=== PATIENT | female | born 1980 | race Caucasian/White ===

== ENCOUNTER → 2016-11-23 | Outpatient (CLI) | payer BC ==
--- NOTE | 2016-11-23 13:57 | XR ---
EXAMINATION TYPE: XR chest 2V DATE OF EXAM: 11/23/2016 COMPARISON: NONE HISTORY: Cough for 5 days. Bronchitis per order. TECHNIQUE: Frontal and lateral views of the chest are obtained. FINDINGS: There is no focal air space opacity, pleural effusion, or pneumothorax seen. The cardiac silhouette size is within normal limits. The osseous structures are intact. IMPRESSION: No suspicious acute infiltrate.
== END | disposition home or self-care (01) ==
LOC: RADXRYALE 13:06
PROVIDERS: ATTEND Internal Medicine
DX: J40 Bronchitis, not specified as acute or chronic (principal)
CPT/HCPCS: 71020

== ENCOUNTER 2018-09-14 00:20 | Emergency (ER) | payer BC ==
[2018-09-14 00:38] VITALS: BP 136/93; PULSE 95; RESP 18; TEMP 98.1
[2018-09-14 02:02] LABS: Appearance,Urine Clear (Clear); Bilirubin,Urine Negative (Negative); Blood,Urine Small (Negative); Color,Urine Yellow; Glucose,Urine (UA) Negative (Negative); Ketones,Urine 2+ (Negative); Leukocyte Esterase,Urine Small (Negative); Mucus,Urine Rare /hpf; Nitrite,Urine Negative (Negative); PH, Urine 5.5 (5.0-8.0); Protein,Urine Negative (Negative); RBC,Urine 13 /hpf (0-5); Squamous Epithelial Cell,Urine 2 /hpf (0-4); Urobilinogen,Urine <2.0 mg/dL (<2.0)
[2018-09-14] MEDS ORDERED: NITROFURANTOIN MONOHYD/M-CRYST 100 MG CAP PO STA (02:08)
[2018-09-14] MEDS ORDERED: PHENAZOPYRIDINE 200 MG TAB PO STA (02:09)
--- NOTE | 2018-09-14 02:37 | ED ---
Abdominal Pain HPI - General Chief Complaint: Abdominal Pain Stated Complaint: Back Pain Pelvic Pain Urge to Urinate Time Seen by Provider: 09/14/18 01:17 Source: patient Mode of arrival: ambulatory Limitations: no limitations - History of Present Illness Initial Comments: First previously healthy 38-year-old female presents the emergency department today for evaluation of pelvic pressure and urinary frequency. Patient reports that throughout the day today she's had pressure in her pelvis and a constant urge to urinate though when she attempts to urinate she produces very little urine. She hasn't noticed any gross hematuria. She has mild dysuria. She has no history of kidney stones. She reports she has no history of urinary tract infection she doesn't follow with urology for anything. She has no concern for or sexual transmitted infections. - Related Data Previous Rx's Medication Instructions Recorded Nitrofurantoin Monohyd/M-Cryst 100 mg PO Q12HR #10 cap 09/14/18 [Macrobid] Phenazopyridine [Pyridium] 200 mg PO TID #9 tablet 09/14/18 Allergies Allergy/AdvReac Type Severity Reaction Status Date / Time No Known Allergies Allergy Verified 09/14/18 00:38 Review of Systems ROS Statement: Those systems with pertinent positive or pertinent negative responses have been documented in the HPI. ROS Other: All systems not noted in ROS Statement are negative. Past Medical History Past Medical History: Hypertension History of Any Multi-Drug Resistant Organisms: None Reported Past Surgical History: Section Past Psychological History: No Psychological Hx Reported Smoking Status: Current every day smoker Past Alcohol Use History: None Reported Past Drug Use History: None Reported General Exam - General Exam Comments Initial Comments: Physical Exam GENERAL: Patient is well-developed and well-nourished. Patient is nontoxic and well- hydrated and is in no distress. HENT: Normocephalic, Atraumatic. EYES: PERRL, EOMI PULMONARY: Unlabored respirations. No audible rales rhonchi or wheezing was noted. CARDIOVASCULAR: There is a regular rate and rhythm without any murmurs gallops or rubs. ABDOMEN: Soft and nontender with normal bowel sounds. Mild discomfort with deep palpation of the suprapubic region. No tenderness to percussion of the flanks SKIN: Skin is clear with no lesions or rashes and otherwise unremarkable. : Deferred NEUROLOGIC: Patient is alert and oriented x3. Moving all extremities spontaneously MUSCULOSKELETAL: Normal extremities with adequate strength and full range of motion. No lower extremity swelling or edema. No calf tenderness. PSYCHIATRIC: Normal psychiatric evaluation. Limitations: no limitations Limitations: no limitations Course Vital Signs 09/14/18 00:34 Temperature 98.1 F Pulse Rate 95 Respiratory 18 Rate Blood Pressure 136/93 O2 Sat by Pulse 100 Oximetry Medical Decision Making - Medical Decision Making The patient was seen and evaluated history was obtained from patient History and physical exam are concerning for urinary tract infection urinalysis was obtained and revealed white blood cells as well as red blood cells and positive leuk esterase there were a couple squamous epithelium urine culture was ordered Patient is not , Macrobid and Pyridium were ordered Treatment plan was discussed with patient. I did advise her of the side effects of Pyridium including urine discoloration and some nausea. Advised her to take all of her antibiotics. Return parameters were discussed questions pertaining care were answered to the best of my ability the patient was discharged home in stable condition. - Lab Data Lab Results 09/14/18 09/14/18 Range/Units 01:50 01:50 Urine Color Yellow Urine Appearance Clear (Clear) Urine pH 5.5 (5.0-8.0) Ur Specific [place] 1.020 (1.001-1.035) Urine Protein Negative (Negative) Urine Glucose (UA) Negative (Negative) Urine Ketones 2+ H (Negative) Urine Blood Small H (Negative) Urine Nitrite Negative (Negative) Urine Bilirubin Negative (Negative) Urine Urobilinogen <2.0 (<2.0) mg/dL Ur Leukocyte Esterase Small H (Negative) Urine RBC 13 H (0-5) /hpf Urine WBC 10 H (0-5) /hpf Ur Squamous Epith Cells 2 (0-4) /hpf Urine Mucus Rare H (None) /hpf Urine HCG, Qual Not Detected (Not Detectd) Disposition Clinical Impression: UTI (urinary tract infection) Disposition: HOME SELF-CARE Condition: Stable Instructions (If sedation given, give patient instructions): Urinary Tract Infection in Women (ED) Prescriptions: Nitrofurantoin Monohyd/M-Cryst [Macrobid] 100 mg PO Q12HR #10 cap Phenazopyridine [Pyridium] 200 mg PO TID #9 tablet Is patient prescribed a controlled substance at d/c from ED?: No Referrals: Sierra Guy MD [Primary Care Provider] - 1-2 days
== END 2018-09-14 02:45 | disposition home or self-care (01) ==
LOC: EC 00:20
DX: N39.0 Urinary tract infection, site not specified (principal); R10.9 Unspecified abdominal pain; F17.200 Nicotine dependence, unspecified, uncomplicated
CPT/HCPCS: 81001; 81025; 99283

== ENCOUNTER → 2018-10-15 | Outpatient (CLI) | payer BC ==
--- NOTE | 2018-10-15 10:46 | US ---
EXAMINATION TYPE: US kidneys/renal and bladder DATE OF EXAM: 10/15/2018 COMPARISON: NONE CLINICAL HISTORY: 38-year-old female M54.5 Rt sided low back pain. Right flank pain. N/V. No hx of r enal stones. TECHNIQUE: Multiple sonographic images of the kidneys and bladder are obtained. FINDINGS: EXAM MEASUREMENTS: Right Kidney: 12.3 x 4.6 x 5.2 cm Left Kidney: 10.1 x 5.1 x 4.5 cm Right Kidney: Mild hydronephrosis visualized. Appears larger in size compared to contralateral kidne y. Left Kidney: No hydronephrosis, lower pole echogenic focus seen with shadow- 0.5 x 0.6 cm Bladder: distended. Echogenic focus seen in right distal ureter with shadow = 0.7 cm Left jet seen IMPRESSION: 1. Mild right-sided hydronephrosis secondary to a 7 mm calculus in the distal right ureter/UVJ region . This obstructs the right ureteral jet. 2. A 6 mm nonobstructive left renal calculus.
== END | disposition home or self-care (01) ==
LOC: RADUSWWP 10:10
PROVIDERS: ATTEND Internal Medicine
DX: N13.2 Hydronephrosis with renal and ureteral calculous obstruction (principal)
CPT/HCPCS: 76770

== ENCOUNTER → 2020-06-09 | Outpatient (CLI) | payer BC | END | disposition home or self-care (01) | LOC: LABWHC1 12:16 | PROVIDERS: ATTEND Internal Medicine | DX: M79.10 Myalgia, unspecified site (principal); R19.7 Diarrhea, unspecified; R11.10 Vomiting, unspecified | CPT/HCPCS: U0003; C9803 ==

== ENCOUNTER → 2021-08-31 | Outpatient (CLI) | payer BC ==
[2021-08-31 17:24] LABS: Basophils # (A) 0.07 X 10*3/uL (0.00-0.10); Basophils % (A) 1.1 %; Eosinophils # (A) 0.12 X 10*3/uL (0.04-0.35); Eosinophils % (A) 1.9 %; HCT 42.5 % (37.2-46.3); HGB 14.1 g/dL (12.0-15.0); Immature Grans, Automated 0.3 %; Lymphocytes % (A) 22.4 %; MCH 30.7 pg (27.0-32.0); MCHC 33.2 g/dL (32.0-37.0); MCV 92.4 fL (80.0-97.0); Mean Platelet Volume 9.7 fL (9.5-12.2); Monocytes # (A) 0.45 X 10*3/uL (0.20-1.00); Monocytes % (A) 7.2 %; NRBC Per 100 WBC 0 /100 WBCS (0.0-0.0); Neutrophils # (A) 4.19 X 10*3/uL (1.80-7.70); Neutrophils % (A) 67.1 %; Platelet Count 416 X 10*3/uL (140-440); RDW 12.5 % (11.5-14.5); WBC 6.25 X 10*3/uL (4.50-10.00)
[2021-08-31 17:32] LABS: Anion Gap 10.7 mmol/L (10.00-18.00)
== END | disposition home or self-care (01) ==
LOC: LABPAT 10:13
PROVIDERS: ATTEND Orthopaedic Surgery Hand Surgery
DX: Z01.812 Encounter for preprocedural laboratory examination (principal); G56.01 Carpal tunnel syndrome, right upper limb
CPT/HCPCS: 80051; 85025

== ENCOUNTER 2021-09-01 06:23 | Day surgery (SDC) | payer BC ==
[2021-08-27 11:01] VITALS: BMI 25.9
--- NOTE | 2021-08-30 10:24 | P.HPOR ---
History of Present Illness H&P Date: 08/30/21 Chief Complaint: Right carpal tunnel syndrome Subjective: This is a 41 year old female that presents today for initial evaluation regarding a 6 month history of worsening numbness and tingling in her right hand localized to the thumb, index and middle fingers. She has tried night splinting with little relief and is having night symptoms. She denies any injury or inciting event. She states she has a history of RA but is not taking any medications. She states her numbness in constant and bothering her everyday and effecting strength. Physical Examination: RUE: AIN/PIN/Radial/Ulnar/Median motor intact. Radial/Ulnar/Median SILT. 2+/4 Radial/Ulnar pulses palpated. 5/5 APB, 5/5 FDI. Negative Finkelsteins, negative CMC grind, positive Durkan's compression. Impression: 1.) Right carpal tunnel syndrome. Plan: Diagnosis and treatment options were discussed with the patient. She has right carpal tunnel syndrome that has failed conservative treatment and I recommend right endoscopic carpal tunnel release. Risks and benefit of surgery including bleeding, infection, damage to surrounding tissue, need for further surgery, possible need to convert to open procedure, residual numbness were discussed and the patient wished to go forward with surgery which will be scheduled in the near future. Please CC notes to Dr. 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, CTS History of Any Multi-Drug Resistant Organisms: None Reported Past Surgical History: Section Additional Past Surgical History / Comment(s): Laparoscopy D/T ovarian cyst rupture Past Anesthesia/Blood Transfusion Reactions: No Reported Reaction Smoking Status: Current every day smoker - Past Family History Mother Family Medical History: No Reported History Medications and Allergies Home Medications Medication Instructions Recorded Confirmed Type Acetaminophen [Tylenol Extra 1,000 mg PO DIRECTED PRN 08/27/21 08/27/21 History Strength] amLODIPine [Norvasc] 10 mg PO DAILY 08/27/21 08/27/21 History lisinopriL [Zestril] 10 tab PO DAILY 08/27/21 08/27/21 History Allergies Allergy/AdvReac Type Severity Reaction Status Date / Time No Known Allergies Allergy Verified 08/27/21 10:41 Physical Examination Osteopathic Statement: *. No significant issues noted on an osteopathic structural exam other than those noted in the History and Physical/Consult.
[~2021-09-01 06:23] MED LIST: DEXAMETHASONE SOD PHOSPHATE 4 MG/ML 1 ML VIAL IV ONE; LACTATED RINGERS 1,000 ML IV SCH; ONDANSETRON 4 MG/2 ML VIAL IVP ONE; Pre Op ABX Message 1 EACH MISC MISCELLANE ONE
[2021-09-01 06:54] VITALS: RESP 16; TEMP 98.6
[2021-09-01] MEDS ORDERED: HYDROmorphone 0.5 MG/0.5 ML SYRINGE IVP PRN (07:00)
[2021-09-01] MEDS ORDERED: LIDOCAINE 1% (10MG/ML) FOR IV START INTRADERMA ONE (07:14)
[2021-09-01] MEDS ORDERED: fentaNYL (PF) 50 MCG/ML 2 ML AMP ONE (07:24)
[2021-09-01] MEDS ORDERED: LIDOCAINE 1% INJ 10MG/ML (20 ML MDV) ONE (07:24)
[2021-09-01] MEDS ORDERED: MIDAZOLAM 2 MG/2 ML VIAL ONE (07:24)
[2021-09-01] MEDS ORDERED: PROPOFOL 10 MG/ML 20 ML VIAL IV ONE (07:24)
[2021-09-01] MEDS ORDERED: BUPIVACAINE (PF) 0.5% 30 ML VIAL SQ ONE (07:43)
[2021-09-01] MEDS ORDERED: LIDOCAINE 1% (PF) 10 MG/ML (30 ML SDV) SQ ONE (07:43)
[2021-09-01 08:26] VITALS: BP 119/81; PULSE 84
--- NOTE | 2021-09-01 15:56 | P.OP ---
Date of Procedure: 09/01/21 Preoperative Diagnosis: Right carpal tunnel syndrome Postoperative Diagnosis: Right carpal tunnel syndrome Procedure(s) Performed: Right endoscopic carpal tunnel release Anesthesia: MAC Surgeon: Ralph Gandhi Estimated Blood Loss (ml): 0 Pathology: none sent Condition: stable Disposition: PACU Operative Findings: This is a 41 year old female who presents today for a right endoscopic carpal tunnel release after having failed conservative treatment in the past. Risks and benefits of surgery were discussed with the patient including bleeding, damage to surrounding tissue, infection, need to convert to open procedure, need for further surgery as well as risks of anesthesia including pulmonary embolism and even and the patient wished to proceed with surgical intervention. The patients was seen in the pre-operative area by myself. Consent and H&P were completed and updated. The correct extremity was marked in the pre-operative area by myself and all other questions were answered. Operative Narrative: The patient was brought to the operating room by the department of anesthesia. They remained on the portable stretcher and a rolling hand table was brought to the side of the operative extremity. Pre-operative time out was performed indicating the correct patient, procedure and laterality. All in the room agreed. The patient was then drifted off to sleep by the department of anesthesia. MAC anesthesia was utilized and a 50:50 mixture of 1% Lidocaine and 0.5% bupivacaine was injected into the subcutaneous tissues of the palmar skin, 9ccs total. A nonsterile tourniquet was then applied to the operative extremity and the right upper extremity was then prepped and draped in normal sterile fashion. The operative extremity was the exsanguinated with an esmarch bandage and the tourniquet was inflated to 250mmHg. 15 blade scalpel was utilized to make a transverse incision on the palmar skin just ulnar to the palmaris longus tendon at the level of the distal wrist crease. Ragnell retractor was then placed radially and blunt dissection was performed to reveal the distal forearm fascia. This was lifted with fine Bartolo pick ups and Littler tenotomy scissors were then used to open the forearm fascia transversely and a double skin hook was then placed. Hamate finder was placed into the carpal tunnel and then sequential sized dilators were inserted followed by the synovial elevator to separate the flexor tenosynovium from the undersurface of the transverse carpal ligament and a washboard texture was felt. The MicroAire endoscopic carpal tunnel release system gun was the then inserted into the carpal tunnel hugging the deep portion of the transverse carpal ligament in line with the base of the ring finger. Transverse fibers of the ligament were directly visualized. Pressure was applied on the palm to reveal the distal extent of the transverse carpal ligament. The blade was then deployed and the distal half of the transverse carpal ligament was released. The scope was then brought distal again and remaining transverse fibers were incised with the blade. The proximal half of the transverse carpal ligament was then divided and again the scope was advanced distal and remaining transverse fibers were incised with the blade. The radial and ulnar leaflets were directly visualized and mobile consistent with complete release. Tenotomy scissors were then utilized to release the remaining distal forearm fascia under direct visualization taking care to preserve the palmar cutaneous branch of the median nerve. Skin closure was performed with interrupted 4-0 Monocryl suture followed by Mastisol and steri strips. Sterile dressing was applied consisting of adaptic, 4x4s, Webril, and an rain bandage. Tourniquet was let down and the hand immediately was well perfused. The patient was then woken by the department of anesthesia and transferred to PACU in stable condition. Ralph Gandhi D.O. Orthopedic Hand/Upper Extremity Surgeon
== END 2021-09-01 09:03 | disposition home or self-care (01) ==
LOC: OR 06:23
PROVIDERS: ATTEND Orthopaedic Surgery Hand Surgery
DX: G56.01 Carpal tunnel syndrome, right upper limb (principal); I10 Essential (primary) hypertension; F17.210 Nicotine dependence, cigarettes, uncomplicated
CPT/HCPCS: 29848; 81025; J2250; J1100; J2405; J2001 ×2; J3010; J2704

== ENCOUNTER 2022-03-22 19:36 | Emergency (ER) | payer BC ==
[2022-03-22 19:49] VITALS: RESP 18; TEMP 97.5
[2022-03-22] MEDS ORDERED: HYDROmorphone 0.5 MG/0.5 ML SYRINGE IVP STA (20:03)
[2022-03-22] MEDS ORDERED: SODIUM CHLORIDE 0.9% 500 ML 500 ML IV ONE (20:03)
--- NOTE | 2022-03-22 20:32 | CT ---
EXAMINATION TYPE: CT brain cspine wo con CT DLP: 1356.9 mGycm, Automated exposure control for dose reduction was used. DATE OF EXAM: 03/22/2022 8:12 PM COMPARISON: None. CLINICAL INDICATION:Female, 42 years old with history of Fall; fall, n/v, headache TECHNIQUE: Brain: Multiple axial CT images of the brain were obtained without IV contrast. Cspine: Axial CT images from the skull base to the inferior aspect of T2 we obtained without intraven ous contrast. Coronal and sagittal reformatted images were also reviewed. FINDINGS: Brain: Extra-axial spaces: High density blood products are seen within the sulci and layering over the gyri predominantly involving bilateral frontal lobes right temporal lobe the left basilar cisterns Ventricular system: Within normal limits Cerebral parenchyma: No acute intraparenchymal hemorrhage or mass effect. The hernandez-white junction is well differentiated. Cerebellum: Unremarkable. Mass effect: No evidence of midline shift. Intracranial vasculature: unremarkable Soft tissues: Normal. Calvarium/osseous structures: Posterior left skull fracture involving the left occipital bone which i s nondisplaced. Paranasal sinuses and mastoid air cells: There is complete opacification of the left maxillary sinus. Visualized orbits: Orbital contents are intact. Cervical spine: Fracture: None. Osseous structures: Minimal multilevel disc degeneration changes. Vertebral alignment: Within normal limits. Spinal canal/Neural Foramina: C5-C6 posterior lobe calcification with at least mild spinal canal sten osis. No evidence of significant spinal canal narrowing. No evidence for significant neural foraminal stenosis. Neck soft tissues: Prevertebral soft tissues are within normal limits. Other: The airway is patent. Left upper lobe 4 mm pulmonary nodule. Findings communicated to Dr. Luciano Coleman MD on 03/22/2022 8:[address] Luciano Milligan. IMPRESSION: 1. Left occipital nondisplaced skull fracture with associated subarachnoid hemorrhage. A more focal area of blood products near the left MCA origin is present, and underlying aneurysm nontender exclude d. Further evaluation with CTA of the head is recommended. 2. No evidence of cervical spine fracture. 3. Mild multilevel degenerative disc disease. 4. Left upper lobe 4 mm pulmonary nodule. Consider consider follow-up in one year in high-risk patien t.
--- NOTE | 2022-03-22 20:33 | ED ---
General Adult HPI - General Chief complaint: Fall Stated complaint: Fall from 14ft, vomiting, loss of hearing Source: patient, family, RN notes reviewed, old records reviewed Mode of arrival: wheelchair Limitations: no limitations - History of Present Illness Initial comments: 42-year-old female with fall from a barn roof. Patient had fallen through a rotten barn roof approximately 14 feet. Uncertain if she landed on dirt or concrete. She had head injury and is complaining of headache. Patient came through a mandatory triage. This occurred about one hour prior to evaluation. No anticoagulation, no loss consciousness. He shouldn't has had nausea vomiting and left-sided occipital and temporal headache. - Related Data Home Medications Medication Instructions Recorded Confirmed Acetaminophen [Tylenol Extra 1,000 mg PO DIRECTED PRN 08/27/21 10/20/21 Strength] amLODIPine [Norvasc] 10 mg PO DAILY 08/27/21 10/20/21 lisinopriL [Zestril] 10 tab PO DAILY 08/27/21 10/20/21 Allergies Allergy/AdvReac Type Severity Reaction Status Date / Time No Known Allergies Allergy Verified 03/22/22 19:48 Review of Systems ROS Statement: Those systems with pertinent positive or pertinent negative responses have been documented in the HPI. ROS Other: All systems not noted in ROS Statement are negative. 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 Past Anesthesia/Blood Transfusion Reactions: No Reported Reaction Past Psychological History: No Psychological Hx Reported Smoking Status: Current every day smoker Past Alcohol Use History: None Reported Past Drug Use History: None Reported - Past Family History Mother Family Medical History: No Reported History General Exam Limitations: no limitations Course Vital Signs 03/22/22 19:45 Temperature 97.5 F L Pulse Rate 87 Respiratory 18 Rate Blood Pressure 137/94 O2 Sat by Pulse 100 Oximetry EKG Findings - EKG Comments: EKG Findings:: EKG: Sinus rhythm rate of 90, CT interval 124, QRS duration 96, QTC 443, no ST segment changes. Medical Decision Making - Medical Decision Making 42-year-old female with head trauma, left-sided, fall from about 14 feet no anticoagulation. Patient is evaluated in trauma bay [address] taken immediately [address] CT imaging. She does have occipital tenderness on the left side, the tympanic membrane is intact with no hemotympanum. Pupils are equal and reactive. He has a nonfocal neurologic exam is complaining of severe headache. CT imaging does show atretic subarachnoid hemorrhage and nondisplaced occipital fracture. IV established, laboratory studies pending. I did discuss case with Dr. Elaine, covering trauma at [facility], will accept transfer. Patient will be taken to [facility]. Critical Care Time Critical Care Time: Yes Total Critical Care Time: 35 Disposition Clinical Impression: Fall, Traumatic subarachnoid hemorrhage, Skull fracture Disposition: ADMITTED IP TO THIS [facility] Condition: Serious Is patient prescribed a controlled substance at d/c from ED?: No Referrals: Sierra Guy MD [Primary Care Provider] - 1-2 days
[2022-03-22] MEDS ORDERED: ONDANSETRON 4 MG/2 ML VIAL IVP STA (20:44)
[2022-03-22 20:46] VITALS: PULSE 90
[2022-03-22 20:51] LABS: Basophils # (A) 0.1 k/uL (0-0.2); Basophils % (A) 0 %; Eosinophils # (A) 0.1 k/uL (0-0.7); Eosinophils % (A) 1 %; HCT 43.7 % (34.0-46.0); HGB 14.8 gm/dL (11.4-16.0); Lymphocytes # (A) 1.3 k/uL (1.0-4.8); Lymphocytes % (A) 9 %; MCH 31.2 pg (25.0-35.0); MCHC 33.9 g/dL (31.0-37.0); MCV 92.1 fL (80.0-100.0); Mean Platelet Volume 7.8; Monocytes # (A) 0.7 k/uL (0-1.0); Monocytes % (A) 4 %; Neutrophils # (A) 13.5 k/uL (1.3-7.7); Neutrophils % (A) 85 %; Platelet Count 353 k/uL (150-450); RBC 4.74 m/uL (3.80-5.40); RDW 12.9 % (11.5-15.5); WBC 15.8 k/uL (3.8-10.6)
--- NOTE | 2022-03-22 20:51 | XR ---
EXAMINATION TYPE: XR pelvis AP view DATE OF EXAM: 03/22/2022 8:14 PM INDICATION: Patient age:Female; 42 years old; Reason for study: fall; COMPARISON: None TECHNIQUE: The pelvis was examined in a single projection. FINDINGS: There is no evidence of fracture or dislocation. There is no soft tissue abnormality. No a bnormal calcifications are present. Multilevel degenerative changes of the lower spine. Left inferior pubic ramus sclerotic focus could represent a benign bone island measuring up to 11 mm. Left pelvic phlebolith. IMPRESSION: No acute osseous pathology.
--- NOTE | 2022-03-22 20:51 | XR ---
EXAMINATION TYPE: XR chest 1V portable DATE OF EXAM: 03/22/2022 8:14 PM COMPARISON: Chest radiographs from 11/23/2016 TECHNIQUE: XR chest 1V portable Portable AP radiograph of the chest. CLINICAL INDICATION:Female, 42 years old with history of fall; FINDINGS: Lungs/Pleura: There is no evidence of pleural effusion, focal consolidation, or pneumothorax. Pulmonary vascularity: Unremarkable. Heart/mediastinum: Cardiomediastinal silhouette is unremarkable. Musculoskeletal: No acute osseous pathology. IMPRESSION: No acute cardiopulmonary disease/process.
[2022-03-22 21:02] LABS: ALT 25 U/L (4-34); AST 35 U/L (14-36); African American GFR (CKD) >90 (>60 ml/min/1.73 sqM); Albumin 4.9 g/dL (3.5-5.0); Alkaline Phosphatase 47 U/L (38-126); Anion Gap 14 mmol/L; Blood Urea Nitrogen 17 mg/dL (7-17); Calcium 9.4 mg/dL (8.4-10.2); Carbon Dioxide 19 mmol/L (22-30); Chloride 103 mmol/L (98-107); Glucose 107 mg/dL (74-99); Non-African American GFR(CKD) >90 (>60 ml/min/1.73 sqM); Potassium 3.7 mmol/L (3.5-5.1); Sodium 136 mmol/L (137-145); Total Bilirubin 0.5 mg/dL (0.2-1.3); Total Protein 7.5 g/dL (6.3-8.2)
[2022-03-22 21:05] VITALS: BP 139/76
[2022-03-22 21:11] LABS: Partial Thromboplastin Time 22.3 sec (22.0-30.0); Prothrombin Time 10.6 sec (9.0-12.0)
== END 2022-03-22 21:05 | disposition other institution (70) ==
LOC: EC 19:36
DX: S06.6XAA Traumatic subarachnoid hemorrhage with loss of consciousness status unknown, initial encounter (principal); S02.91XA Unspecified fracture of skull, initial encounter for closed fracture; I10 Essential (primary) hypertension; F17.200 Nicotine dependence, unspecified, uncomplicated; Z79.83 Long term (current) use of bisphosphonates; Z79.01 Long term (current) use of anticoagulants; W18.30XA Fall on same level, unspecified, initial encounter
CPT/HCPCS: 99285; 36415; 80053; 85025; 85610; 85730; 72170; 71045; 72125; 70450; 96374; 96375; J2405; J1170

== ENCOUNTER → 2022-05-17 | Outpatient (CLI) | payer BC ==
--- NOTE | 2022-05-17 19:04 | CT ---
EXAMINATION TYPE: CT chest wo con DATE OF EXAM: 05/17/2022 COMPARISON: CT cervical spine March 22, 2022 HISTORY: Solitary pulmonary nodule follow up from prior CT. CT DLP: 146.7 mGycm. Automated Exposure Control for Dose Reduction was Utilized. TECHNIQUE: CT scan of the thorax is performed without IV contrast. FINDINGS: LUNGS: Redemonstration of 4 mm peripheral anterior left upper lobe nodule axial image 7. There are 2 groundglass nodules in the right upper lobe measuring 6 mm each on axial images 23 and 24 respectivel y. No suspicious focal consolidation. There is no pleural effusion or pneumothorax seen. The trache obronchial tree is patent. MEDIASTINUM: Lack of IV contrast is noted to limit evaluation for mediastinal and especially hilar ad enopathy. There are no definitive greater than 1 cm mediastinal lymph nodes. No cardiomegaly or per icardial effusion is seen. Some residual thymus tissue in the anterior superior mediastinum is seen. OTHER: There are 3 scattered left-sided renal calculi measuring up to 9 mm coronal image 53. IMPRESSION: Stable 4 mm peripherally inferior left upper lobe nodule. There are 2 -- 6 mm groundglass nodules right upper lobe. CT follow-up in 3-6 months time is advised to reassess as per Fleischner S ociety recommendations.
== END | disposition home or self-care (01) ==
LOC: RADCTMAIN 17:15
PROVIDERS: ATTEND Internal Medicine
DX: R91.8 Other nonspecific abnormal finding of lung field (principal)
CPT/HCPCS: 71250

== ENCOUNTER → 2023-08-31 | Outpatient (CLI) | payer BC ==
--- NOTE | 2023-08-31 22:15 | MM ---
Reason for Exam: Screening (asymptomatic). Patient History: Menarche at age 14. First Full-Term at age 27. Premenopausal. Hormonal Contraceptives for 8 years from age 17 until age 25. Paternal grandmother had breast cancer, age 75. Risk Values: Eunice 5 year model risk: 0.7%. NCI Lifetime model risk: 10.9%. Tissue Density: The breasts are heterogeneously dense, which may obscure small masses. Findings: Analyzed By CAD. The pattern is symmetrical. There is a focal asymmetry which may be a summation density on the upper right mediolateral oblique view. Some nodularity is lateral aspect of the right craniocaudal view. Additional workup of these findings is recommended. Breast:No suspicious groups of microcalcifications, spiculated or lobular masses, architectural distortion or other secondary signs of malignancy are mammographically apparent. Overall Assessment: Incomplete: need additional imaging evaluation, BI-RAD 0 Management: Diagnostic Mammogram of the right breast. A negative mammogram report should not preclude additional follow up of suspicious palpable abnormalities. Patient should continue monthly self breast exam. A clinical breast exam by your physician is recommended on an annual basis and results should be correlated with mammographic findings. Electronically signed and approved by: Daniel Mccollum D.O. Radiologis
== END | disposition home or self-care (01) ==
LOC: RADMAMWWP 14:08
PROVIDERS: ATTEND Obstetrics & Gynecology
DX: Z12.31 Encounter for screening mammogram for malignant neoplasm of breast (principal); Z80.3 Family history of malignant neoplasm of breast
CPT/HCPCS: 77067

== ENCOUNTER → 2023-09-06 | Outpatient (CLI) | payer BC ==
--- NOTE | 2023-09-06 10:31 | MM ---
Reason for Exam: Additional evaluation requested from abnormal screening. Last screening mammogram was performed less than 1 month ago. Patient History: Menarche at age 14. First Full-Term at age 27. Premenopausal. Patient has history of breast feeding. Hormonal Contraceptives for 8 years from age 17 until age 25. Paternal grandmother had breast cancer, age 75. Risk Values: Eunice 5 year model risk: 0.7%. NCI Lifetime model risk: 10.9%. Prior Study Comparison: 08/31/2023 Bilateral MG screening mammo w CAD, [facility]. Tissue Density: Right: The breasts are heterogeneously dense, which may obscure small masses. Findings: Analyzed By CAD. Pattern appears stable. There compression, the distortion in the upper right breast appears to disperse normally. There is underlying nodularity in the upper-outer aspect right breast measuring 4 mm transverse dimension located 8 cm multiple. Ultrasound is recommended for additional evaluation. No suspicious groups of microcalcifications, spiculated or lobular masses, architectural distortion or other secondary signs of malignancy are mammographically apparent.Pattern appears stable. Under compression, the distortion in the upper right breast appears to disperse normally. There is underlying nodularity in the upper-outer aspect right breast measuring 4 mm transverse dimension located 8 cm multiple. Ultrasound is recommended for additional evaluation. No suspicious groups of microcalcifications, spiculated or lobular masses, architectural distortion or other secondary signs of malignancy are mammographically apparent. Overall Assessment: Incomplete: need additional imaging evaluation, BI-RAD 0 Management: Diagnostic Breast Ultrasound of the right breast. A negative mammogram report should not preclude additional follow up of suspicious palpable abnormalities. Patient should continue monthly self breast exam. A clinical breast exam by your physician is recommended on an annual basis and results should be correlated with mammographic findings. Electronically signed and approved by: Daniel Mccollum D.O. Radiologis
--- NOTE | 2023-09-06 12:01 | USB ---
Reason for Exam: Additional evaluation requested from prior study. Patient History: Menarche at age 14. First Full-Term at age 27. Premenopausal. Patient has history of breast feeding. Hormonal Contraceptives for 8 years from age 17 until age 25. Paternal grandmother had breast cancer, age 75. Risk Values: Eunice 5 year model risk: 0.7%. NCI Lifetime model risk: 10.9%. Technique: Method: Targeted. Prior Study Comparison: 08/31/2023 Bilateral MG screening mammo w CAD, [facility]. Findings: The upper outer quadrant of the right breast, the axilla of the right breast and the retroareolar of the right breast were scanned. There is a 0.6 x 0.3 cm hypoechoic area with central hyperintensity compatible with a small lymph node at the 11:00 position 8 cm from the nipple. This appears to correlate with the mammographic findings.. Overall Assessment: Benign, BI-RAD 2 Management: Screening Mammogram of both breasts in 1 year. A clinical breast exam by your physician is recommended on an annual basis and results should be correlated with mammographic findings. This exam should not preclude additional follow-up of suspicious palpable abnormalities. Results were given to the patient verbally at the time of exam. Electronically signed and approved by: Daniel Mccollum D.O. Radiologis
== END | disposition home or self-care (01) ==
LOC: RADMAMWWP 10:01
PROVIDERS: ATTEND Obstetrics & Gynecology
DX: R92.331 Mammographic heterogeneous density, right breast (principal); Z80.3 Family history of malignant neoplasm of breast
CPT/HCPCS: 77061; 77065